=== PATIENT | female | born 1980 | race Caucasian/White ===

== ENCOUNTER 2023-10-27 14:58 | Outpatient (REF) | payer OTHER, SELFPAY ==
[2023-10-27 16:02] LABS: Erythrocyte Sedimentation Rate 29 MM/HR (0-20)
[2023-10-27 16:18] LABS: T4 Thyroxine 8.1 ug/dL (4.5-12.0)
[2023-10-29 13:03] LABS: Lyme Abs Screen <0.90 index
[2023-11-02 08:19] LABS: Anti Nuclear Antibody Screen NEGATIVE (NEGATIVE)
[2023-11-07 05:49] LABS: Aldolase 4.7 U/L (<=8.1)
== END 2023-10-27 14:59 | disposition home or self-care (01) ==
LOC: HO.LAB 14:58
PROVIDERS: PCP Internal Medicine; Visit Provider Psychiatry & Neurology Neurology
DX: M79.7 Fibromyalgia (principal)
CPT/HCPCS: 36415; 82085; 82550; 84436; 84443; 85652; 86038; 86617; 86618